=== PATIENT | male | born 2000 | race Caucasian/White ===

== ENCOUNTER 2024-09-10 19:20 | Emergency (ER) | payer SELFPAY | END 2024-09-10 20:45 | LOC: ERS 19:20 | DX: S00.01XA Abrasion of scalp, initial encounter (principal); S00.81XA Abrasion of other part of head, initial encounter; Y04.2XXA Assault by strike against or bumped into by another person, initial encounter; Z55.0 Illiteracy and low-level literacy | CPT/HCPCS: 99283 ==